=== PATIENT | female | born 1995 | race Caucasian/White ===

== ENCOUNTER 2016-11-13 18:46 | Emergency (ER) | payer OTHER ==
[~2016-11-13] VITALS: Ht 152.4 cm; Wt 117.9 kg
[~2016-11-13 18:46] MED LIST: ONDA4TAB7 PO; RANI300T3 PO
[2016-11-13 18:56] VITALS: BP 121/75
[2016-11-13] MEDS ORDERED: HYDR-971 PO (19:33)
[2016-11-13] MEDS ORDERED: NAPR500T PO (19:33)
--- NOTE | 2016-11-13 19:53 | PHYS DOC ---
General Chief Complaint: LOWER EXT PAIN Stated Complaint: LEG INJURY Time Seen by MD: 18:49 Source: patient Exam Limitations: no limitations Problems: History of Present Illness Initial Comments Pt is 21/F to ED c/o left knee pain. Pt states yesterday boarding a plane she caught her left leg between seat and a suitcase as she was sitting down. States that her left knee suffered valgus stress "my knee popped out to 45 degrees." pt has had medial/lateral as well as joint line tenderness worse with full extension and flexion. No giving out or extra motion noted, pain is throbbing/sharp 7/10 worse with movement better with rest. States she's been able to get around painfully with limp. No other injury, no numbness/tingling/weakness/radiating symptoms. No prearrival treatment. Onset: yesterday Severity: moderate Pain/Injury Location: left knee Method of Injury: twisted Modifying Factors: worse with movement, worse with pain medication, improves with rest Allergies: Coded Allergies: No Known Drug Allergies (Unverified , 09/15/16) Past Medical History Medical History: other (obesity) Surgical History: noncontributory Social History Smoker: non-smoker Alcohol: none Drugs: none Review of Systems Constitutional: denies chills, denies fever Respiratory: denies cough, denies shortness of breath Cardiovascular: denies chest pain, denies palpitations Gastrointestinal: denies nausea, denies vomiting Genitourinary: denies frequency, denies hematuria Musculoskeletal: see HPI Psychiatric/Neurological: see HPI Physical Exam General Appearance: no apparent distress, obese HEENT: normal ENT inspection Neck: full range of motion, supple Cardiovascular/Respiratory: normal peripheral pulses, no respiratory distress Back: no CVA tenderness, no vertebral tenderness Knees: right knee non-tender, right knee normal inspection, right knee normal range of motion, right knee no evidence of injury, left knee other (Exam limited by habitus. Difficult to discern possible effusion, warmth noted vs contralateral, TTP at both collateral ligs as well as joint line, no bony TTP ligs do appear to be intact. Extremity is NV intact) Ankles: bilateral ankle non-tender, bilateral ankle normal inspection, bilateral ankle normal range of motion, bilateral ankle no evidence of injury Neurologic/Tendon: normal sensation, normal motor functions, normal tendon functions, responds to pain, no evidence tendon injury Psychiatric: alert, oriented x 3 Skin: normal color, warm/dry Orders, Labs, Meds L Knee: no acute osseous abnormality noted NV intact after immobilizer placed, could not tolerate crutches. Departure Time of Disposition: 19:50 Disposition: 01 HOME, SELF-CARE Diagnosis: left knee sprain Condition: GOOD Patient Instructions: Knee Immobilizer, [id number], Knee Sprain, [id number] , RICE - Routine Care for Injuries, [id number] Additional Instructions: Use crutches as needed. Wear knee immobilizer when up and active. RICE, see handout. OTC ibuprofen for baseline pain. Rx: norco 5mg #30, naprosyn Take medications with food. Follow up with your doctor next week for recheck and further imaging/referrals if necessary. Return to ED with new or changing symptoms. CAROL AGUILAR DO November 13, 2016 19:53
--- NOTE | 2016-11-14 09:24 | RAD ---
Indication pain. AP lateral and oblique views of the left knee were obtained as well as a study. No bony abnormality is seen
== END 2016-11-13 20:00 | disposition home or self-care (01) ==
LOC: ER 18:46
DX: S83.92XA Sprain of unspecified site of left knee, initial encounter (principal); E66.01 Morbid (severe) obesity due to excess calories; Z68.43 Body mass index [BMI] 50.0-59.9, adult; W23.0XXA Caught, crushed, jammed, or pinched between moving objects, initial encounter; Y93.89 Activity, other specified; Y99.8 Other external cause status; Y92.89 Other specified places as the place of occurrence of the external cause
CPT/HCPCS: 29505; 73564; 99284-25

== ENCOUNTER 2017-06-26 12:38 | Emergency (ER) | payer OTHER ==
[~2017-06-26] VITALS: Ht 165.1 cm; Wt 130.6 kg
[2017-06-26 12:38] VITALS: BP 130/92
[~2017-06-26 12:38] MED LIST changes: +HYDR-971 PO; +NAPR-683 PO
--- NOTE | 2017-06-26 13:08 | ED.ADGEN ---
Past History Past Medical History: No Pertinent History Past Surgical History: Cholecystectomy Alcohol Use: None Drug Use: None Adult General HPI HPI Patient is a 21 year old female with sore throat. Sore throat for 2 days. Has been losing her voice. No fevers. No DB. No fevers. Eating and drinking well. Pain is moderate. Review of Systems Review of Systems Constitutional: Denies fever or chills Eyes: Denies change in visual acuity, redness, or eye pain HENT: Denies nasal congestion. Respiratory: Denies cough or shortness of breath Musculoskeletal: Denies back pain or joint pain Integument: Denies rash or skin lesions Allergies Allergies Allergies Coded Allergies Type Severity Reaction Last Updated Verified No Known Drug Allergies 09/15/16 No Physical Exam Physical Exam Constitutional: Well developed, well nourished, no acute distress, non-toxic appearance. HENT: Normocephalic, atraumatic, oropharynx moist, no oral exudates, nose normal. Uvula midline. Eyes: PERRLA, EOMI, conjunctiva normal, no discharge. Neck: Normal range of motion, no tenderness, supple, no stridor. Cardiovascular:Heart rate regular rhythm, no murmur Lungs & Thorax: Bilateral breath sounds clear to auscultation Skin: Warm, dry, no erythema, no rash. Current Patient Data Lab Results Strep screen negative EKG EKG [] Radiology/Procedures Radiology/Procedures [] Course & Med Decision Making Course & Med Decision Making Stable for dismissal with symptomatic treatment. Return warnings given. Pertinent Labs and Imaging studies reviewed. (Strep negative) [] Final Impression Final Impression []Pharyngitis Problems: Dragon Disclaimer Dragon Disclaimer This electronic medical record was generated, in whole or in part, using a voice recognition dictation system. KADE ROBLES MD Jun 26, 2017 13:08
== END 2017-06-26 13:17 | disposition home or self-care (01) ==
LOC: ER 12:38
DX: J02.9 Acute pharyngitis, unspecified (principal)
CPT/HCPCS: 87070; 87880; 99283

== ENCOUNTER 2019-02-15 15:04 | Emergency (ER) | payer SELFPAY ==
[~2019-02-15] VITALS: Ht 165.1 cm; Wt 130.6 kg
[~2019-02-15 15:04] MED LIST changes: +HYDR-3165 PO; -HYDR-971 PO
[2019-02-15 15:27] VITALS: BP 130/92
[2019-02-15] MEDS ORDERED: DEXAMETHASONE SOD PHOS 10 MG/ML VIAL PO ONE (17:00)
--- NOTE | 2019-02-15 17:24 | PHYS DOC ---
Past History Past Medical History: GERD, Other Past Surgical History: Cholecystectomy Alcohol Use: Occasionally Drug Use: None Adult General Chief Complaint Chief Complaint: SORE THROAT HPI HPI Patient is a 23 year old female who presents with complaint of sore throat. The patient states that she was evaluated 2 days ago at an urgent care and was confirmed diagnosed with strep pharyngitis per throat swab. Was started on oral amoxicillin. States that she has continued to have sore throat symptoms and is having difficulty swallowing secondary to pain. States that she is tolerating her medication and oral fluids at this time. Has not taken any ibuprofen or Tylenol today. Has not felt feverish today. Primary concern is continued pain in the throat. No shortness of breath. Tolerating oral secretions without difficulty. Review of Systems Review of Systems Constitutional: Denies fever or chills [] Eyes: Denies change in visual acuity, redness, or eye pain [] HENT: Sore throat[] Respiratory: Denies cough or shortness of breath [] Cardiovascular: Denies chest pain or edema[] GI: Denies abdominal pain, nausea, vomiting, bloody stools or diarrhea [] : Denies dysuria or hematuria [] Musculoskeletal: Denies back pain or joint pain [] Integument: Denies rash or skin lesions [] Neurologic: Denies headache, focal weakness or sensory changes [] All other systems were reviewed and found to be within normal limits, except as documented in this note. Current Medications Current Medications Current Medications Medications (Trade) Dose Ordered Sig/Abraham Start Time Stop Time Status Last Admin Dose Admin Dexamethasone Sodium Phosphate (Decadron) 10 mg 1X ONCE 02/15/19 17:00 02/15/19 17:01 DC Allergies Allergies Allergies Coded Allergies Type Severity Reaction Last Updated Verified No Known Drug Allergies 09/15/16 No Physical Exam Physical Exam Constitutional: Alert, afebrile, no acute distress. [] HENT: Normocephalic, atraumatic, bilateral external ears normal, oropharynx erythematous, tonsils are 2+ bilaterally with exudates present, no asymmetrical swelling of the oropharynx, no oral exudates, nose normal. [] Eyes: PERRLA, EOMI, conjunctiva normal, no discharge. [] Neck: Normal range of motion, no tenderness, anterior cervical lymphadenopathy present, no stridor. [] Cardiovascular:Heart rate regular rhythm, no murmur [] Lungs & Thorax: Bilateral breath sounds clear to auscultation [] Abdomen: Bowel sounds normal, soft, no tenderness, no masses, no pulsatile masses. [] Skin: Warm, dry, no erythema, no rash. [] Back: No tenderness, no CVA tenderness. [] Extremities: No tenderness, no cyanosis, no clubbing, ROM intact, no edema. [] Neurologic: Alert and oriented X 3, normal motor function, normal sensory func tion, no focal deficits noted. [] Current Patient Data Lab Results Not performed EKG EKG Not performed[] Radiology/Procedures Radiology/Procedures Not performed[] Course & Med Decision Making Course & Med Decision Making Pertinent Labs and Imaging studies reviewed. (See chart for details) The patient has continued pain secondary to strep pharyngitis. Afebrile at this time. Tolerating oral amoxicillin and oral fluids. Offered Bicillin injection for treatment, however patient states that she is "deathly afraid of needles" and does not wish to receive injections. Given oral Decadron to help reduce inflammation. Advised to continue with oral amoxicillin as prescribed and recommended follow-up in 2 days with primary doctor for reevaluation. Recommended return to emergency department for any worsening symptoms. Patient was understanding and in agreement with treatment plan.[] Dragon Disclaimer Dragon Disclaimer This electronic medical record was generated, in whole or in part, using a voice recognition dictation system. Departure Departure: Impression: Primary Impression: Strep pharyngitis Disposition: HOME, SELF-CARE Condition: STABLE Referrals: PHILIPPE MCMAHAN MD (PCP) Patient Instructions: Strep Throat Additional Instructions: Continue with oral fluids to stay well hydrated and take all doses of amoxicillin medication as prescribed. Follow-up with your primary doctor in 2 days for reevaluation. Return to emergency department for any worsening symptoms. NATALIE TREADWELL MD Feb 15, 2019 17:24
== END 2019-02-15 17:27 | disposition home or self-care (01) ==
LOC: ER 15:04
DX: J02.0 Streptococcal pharyngitis (principal); B95.0 Streptococcus, group A, as the cause of diseases classified elsewhere; K21.9 Gastro-esophageal reflux disease without esophagitis
CPT/HCPCS: 99282; J1100